=== PATIENT | female | born 1985 | race Caucasian/White ===

== ENCOUNTER 2019-05-14 00:28 | Emergency (ER) | payer MEDICAID ==
[~2019-05-14] VITALS: Ht 167.6 cm; Wt 61.8 kg
[~2019-05-14 00:28] MED LIST: ALB0.5UD IH; PRED20TA PO
[2019-05-14 00:46] VITALS: BP 111/57
== END 2019-05-14 03:07 | disposition left against medical advice (07) ==
LOC: ER 00:29
DX: R51 Headache (principal); Z53.21 Procedure and treatment not carried out due to patient leaving prior to being seen by health care provider